=== PATIENT | female | born 1975 | race Caucasian/White ===

== ENCOUNTER 2017-12-30 07:39 | Outpatient (CLI) | payer BC ==
--- NOTE | 2017-12-30 09:28 | MRI ---
MRI LUMBAR SPINE PERFORMED WITHOUT CONTRAST ENHANCEMENT: History: Back pain, tingling down right leg and toes. FINDINGS: Vertebral bodies are normal in height. Disc desiccation changes are seen at L4-5. There is no signifi cant periaortic adenopathy. The visualized portions of the kidneys appear unremarkable. T12-L1: Unremarkable. L1-2: Unremarkable. L2-3: Mild facet hypertrophic changes. No canal or foraminal stenosis. L3-4: Mild facet hypertrophic changes, without significant canal or foraminal stenosis. L4-5: There is a right paracentral annular disc tear and small disc protrusion at this level. Minimal ly indents the right side of the thecal sac. There is no foraminal narrowing. The canal is borderline stenotic with facet hypertrophic change. L5-S1: Degenerative facet changes without canal or foraminal stenosis. IMPRESSION: Right paracentral disc protrusion at L4-5. POS: C
--- NOTE | 2017-12-30 09:45 | RAD ---
LUMBAR SPINE SIX VIEWS INCLUDING FLEXION AND EXTENSION LATERAL VIEWS AND OBLIQUE VIEWS: History: 42-year-old female with history of N51.36, lumbar disc degeneration. FINDINGS: There is some levoscoliosis of the lumbar spine. No evidence for abnormal translation between flexion and extension. No fracture or dislocation. IMPRESSION: Generalized spondylosis. No abnormal translation between flexion and extension. POS: ISMAEL
== END 2017-12-30 07:40 | disposition home or self-care (01) ==
LOC: TBSIIMAG 07:39
PROVIDERS: ATTEND Neurological Surgery
DX: M51.36 Other intervertebral disc degeneration, lumbar region (principal); M47.816 Spondylosis without myelopathy or radiculopathy, lumbar region; M51.26 Other intervertebral disc displacement, lumbar region
CPT/HCPCS: 72100; 72148